=== PATIENT | female | born 1985 ===

== ENCOUNTER 2016-06-25 13:55 | Emergency (ER) | payer BC ==
[2016-06-25 14:16] VITALS: BP 150/95; PULSE 66; RESP 16; TEMP 98.1; O2SAT 99
[2016-06-25] MEDS ORDERED: Amoxicillin-Clav 875-125 mg Tab PO STA (15:19)
--- NOTE | 2016-06-25 15:19 | ED PDOC ---
HPI: CCC, URI, Sore Throat Time Seen by Provider: 06/25/16 14:59 Chief Complaint (Nursing): ENT Problem Chief Complaint (Provider): sore throat History Per: Patient Additional Complaint(s): 30-year-old female presents with sore throat and swelling to back of throat that started as of waking up this morning. Patient denies fever or chills, she is able to tolerate liquids and solids. Patient denies recent travel or known sick contacts. Past Medical History Reviewed: Historical Data, Nursing Documentation, Vital Signs Vital Signs: Last Vital Signs Temp 98.1 F 06/25/16 14:14 Pulse 66 06/25/16 14:14 Resp 16 06/25/16 14:14 BP 150/95 H 06/25/16 14:14 Pulse Ox 99 06/25/16 15:19 - Medical History PMH: No Chronic Diseases - Surgical History Surgical History: (x 2) - Family History Family History: States: No Known Family Hx - Living Arrangements Living Arrangements: With Family - Social History Current smoker - smoking cessation education provided: No Alcohol: Social Drugs: Denies - Home Medications Home Medications: Ambulatory Orders Medication Instructions Recorded Ciprofloxacin/Ciprofloxa HCl 500 mg PO BID #20 ter 01/06/15 [Ciprofloxacin] Oxycodone HCl/Acetaminophen 1 tab PO Q6H PRN #15 tab 01/06/15 [Percocet 325 mg-5 mg] Azithromycin [Zithromax] 250 mg PO DAILY #4 tab 06/25/16 Prednisone 50 mg PO DAILY #5 tablet 06/25/16 - Allergies Allergies/Adverse Reactions: Allergies Allergy/AdvReac Type Severity Reaction Status Date / Time Penicillins Allergy RASH Verified 06/25/16 14:14 Curb-65 Severity Score - CURB-65 Severity Score Confusion: No Respiratory Rate greater than/equal to 30: No Systolic BP <90 or Diastolic BP less than/equal 60mmHg: No Age >64: No Curb-65 Score: 0 Percentage 30-day mortality: 0.6% Review of Systems ROS Statement: Except As Marked, All Systems Reviewed And Found Negative Constitutional: Negative for: Fever, Chills ENT: Positive for: Throat Pain, Throat Swelling Respiratory: Negative for: Cough Gastrointestinal: Negative for: Nausea, Vomiting Physical Exam - Reviewed Nursing Documentation Reviewed: Yes Vital Signs Reviewed: Yes - Physical Exam Appears: Positive for: Well, Non-toxic, No Acute Distress Head Exam: Positive for: ATRAUMATIC, NORMAL INSPECTION Skin: Negative for: Rash Eye Exam: Positive for: Normal appearance, EOMI, PERRL ENT: Positive for: Pharyngeal Erythema, Tonsillar Exudate, Tonsillar Swelling, Other (uvula is midline with edema, airway patent) Neck: Positive for: Normal Cardiovascular/Chest: Positive for: Regular Rate, Rhythm Respiratory: Positive for: Normal Breath Sounds Neurologic/Psych: Positive for: Alert, Oriented - Laboratory Results Urine POC: Negative - ECG O2 Sat by Pulse Oximetry: 99 Pulse Ox Interpretation: Normal Medical Decision Making Medical Decision Makin30 year old with throat pain Plan: test Throat culture PO zithromax and prednisone Rx given for prednisone and zithromax, patient was referred to ENT for follow up. Disposition - Clinical Impression Clinical Impression: Pharyngitis - Patient ED Disposition Is Patient to be Admitted: No Counseled Patient/Family Regarding: Studies Performed, Diagnosis, Need For Followup, Rx Given - Disposition Referrals: Kenn Medeiros MD [Staff Provider] - Disposition: Routine/Home Disposition Time: 15:40 Condition: STABLE Additional Instructions: Prescription medications as directed. [id number] Tylenol or Advil for pain as needed. Drink plenty of fluids. Follow up with primary doctor or ear, nose and throat specialist for any persistent symptoms. Prescriptions: Prednisone 50 mg PO DAILY #5 tablet Azithromycin [Zithromax] 250 mg PO DAILY #4 tab Instructions: Pharyngitis (ED)
== END 2016-06-25 15:50 | disposition home or self-care (01) ==
LOC: H.ER 13:55
DX: J02.9 Acute pharyngitis, unspecified (principal); Z88.0 Allergy status to penicillin